=== PATIENT | female | born 1955 | race Hispanic/Latino ===

== ENCOUNTER 2016-09-11 04:50 | Emergency (ER) | payer SELFPAY ==
[2016-09-11 05:54] VITALS: O2SAT 99
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
[2016-09-11 07:13] VITALS: BP 132/75; PULSE 75; RESP 18; TEMP 98.2
== END 2016-09-11 07:13 | disposition home or self-care (01) ==
LOC: C.ER 04:50
DX: Z76.0 Encounter for issue of repeat prescription (principal); E11.9 Type 2 diabetes mellitus without complications; Z79.84 Long term (current) use of oral hypoglycemic drugs

== ENCOUNTER 2017-02-16 15:52 | Emergency (ER) | payer MEDICARE ==
[2017-02-16 16:02] VITALS: TEMP 98.5
[2017-02-16] MEDS ORDERED: Sodium Chloride 0.9% 500 ML IV ONE ×2 (16:30→16:44)
[2017-02-16 17:17] LABS: ALB/GLOB RATIO 1.2 (1.0-2.1); ALKALINE PHOSPHATASE 89 U/L (38-126); ALT/SGPT 28 U/L (9-52); AST/SGOT 21 U/L (14-36); BILIRUBIN,TOTAL 0.3 mg/dL (0.2-1.3); BLOOD UREA NITROGEN 14 mg/dL (7-17); CALCIUM 8.9 mg/dl (8.6-10.4); CARBON DIOXIDE 26 mmol/L (22-30); CHLORIDE 99 mmol/L (98-107); GFR AFRICAN-AMERICAN > 60; GLUCOSE,RANDOM 181 mg/dL (65-105); POTASSIUM 3.6 mmol/L (3.6-5.2); SODIUM 134 mmol/L (132-148); TOTAL PROTEIN 7.7 g/dL (6.3-8.3)
[2017-02-16 17:19] LABS: BASO # 0.1 K/uL (0.0-0.2); BASO % 2.8 % (0.0-2.0); EOS # 0.2 K/uL (0.0-0.7); EOS % 5.6 % (0.0-4.0); HEMATOCRIT 36.2 % (34.0-47.0); LYMPH # 1.8 K/uL (1.0-4.3); MEAN CELL VOLUME 93.6 fL (81.0-99.0); MEAN CORPUSCULAR HGB CONC 35.2 g/dL (33.0-37.0); MONO # 0.9 K/uL (0.0-0.8); NRBC % 0.1 % (0.0-2.0); PLATELET COUNT 319 K/uL (130-400); RED CELL DISTRIBUTION WIDTH 13.8 % (11.5-14.5); WHITE BLOOD COUNT 4.4 K/uL (4.8-10.8)
--- NOTE | 2017-02-16 17:20 | C.PDOC ---
History Of Present Illness 62 year old female, whose PMHx includes breast cancer and is currently in chemotherapy, presents to the ED for evaluation of cough which began 3 weeks ago. Patient states her cough is productive of green sputum and reports associated back pain. Patient states she was evaluated by her PMD and given prescription for Zithromax. Patient finished her course 2 weeks ago without improvement. Patient was then placed on Ampicillin, but states her cough has worsened. Patient denies fever, chills, abdominal pain, hemoptysis, vomiting, diarrhea, and recent travel at this time. Time Seen by Provider: 02/16/17 16:26 Chief Complaint (Nursing): Cough, Cold, Congestion History Per: Patient History/Exam Limitations: no limitations Onset/Duration Of Symptoms: Days (3 weeks ) Current Symptoms Are (Timing): Still Present Reports Recently: Treated By A Physician Recent travel outside of the [place]: No Additional History Per: Patient Past Medical History Reviewed: Historical Data, Nursing Documentation, Vital Signs Vital Signs: Last Vital Signs Temp 98.5 F 02/16/17 16:01 Pulse 101 H 02/16/17 19:24 Resp 16 02/16/17 19:24 BP 161/74 H 02/16/17 19:24 Pulse Ox 95 02/16/17 19:24 - Medical History PMH: Anxiety Other PMH: breast cancer Surgical History: Cholecystectomy Family History: States: Unknown Family Hx - Social History Hx Alcohol Use: No Hx Substance Use: No - Immunization History Hx Tetanus Toxoid Vaccination: No Hx Influenza Vaccination: No Hx Pneumococcal Vaccination: No Review Of Systems Constitutional: Negative for: Fever, Chills Respiratory: Positive for: Cough, Sputum Gastrointestinal: Negative for: Vomiting, Abdominal Pain, Diarrhea Physical Exam - Physical Exam Appears: Non-toxic, No Acute Distress Skin: Normal Color, Warm, Dry, No Rash Head: Atraumatic, Normacephalic Eye(s): bilateral: Normal Inspection, PERRL, EOMI Ear(s): Bilateral: Normal Nose: Normal, No Discharge Oral Mucosa: Moist Throat: Normal, No Erythema, No Exudate Neck: Normal ROM, Supple Chest: Symmetrical, No Deformity, No Tenderness Cardiovascular: Rhythm Regular, No Friction Rub, No Murmur Respiratory: No Rales, Rhonchi (scant ), Wheezing Gastrointestinal/Abdominal: Soft, No Tenderness Back: No Vertebral Tenderness, No Paraspinal Tenderness Extremity: Normal ROM, No Tenderness, Capillary Refill (less than 2 second ), No Swelling Neurological/Psych: Oriented x3, Normal Speech, Normal Cognition, Normal Motor Gait: Steady ED Course And Treatment - Laboratory Results Result Diagrams: 02/16/17 17:02 02/16/17 17:02 O2 Sat by Pulse Oximetry: 96 (on RA ) Pulse Ox Interpretation: Normal - Other Rad CXR X-Ray: Interpreted by Me, Viewed By Me, Read By Radiologist Interpretation: HISTORY: SOB, cough. COMPARISON: 01/03/2011. TECHNIQUE: Chest PA and lateral. FINDINGS: LUNGS: There is a tiny irregular opacity at the left lung base is also projects over coursing vessels and over the posterior left 9th rib. Is not appreciated such on the prior study. A tiny scar for summation shadows of crisscrossing pulmonary vascular markings are 1 consideration. A tiny irregularly marginated nodule the left lung base is not excluded. No consolidation to suggest an infiltrate suggested. PLEURA: No significant pleural effusion identified. No pneumothorax apparent. CARDIOVASCULAR: Probable top-normal heart size. Pulmonary vasculature also top -normal. OSSEOUS STRUCTURES: No significant abnormalities. VISUALIZED UPPER ABDOMEN: Multiple clips in the right upper quadrant these appear more numerous than typically seen with cholecystectomy. Correlate clinically. OTHER FINDINGS : None. IMPRESSION: No consolidative infiltrate. Indeterminate tiny irregularly marginated nodular opacity left lung base- its significance, if any is unknown. Not appreciated on the [address] study[address] chest to to further evaluate Progress Note: CXR was concerning for possible mass. CT chest ordered. The CXR and CT results were discussed with the patient. Patient was instructed to follow up with her oncologist. Medical Decision Making Medical Decision Making: Progress: Bloodwork, UA, EKG, CT Head, and CXR ordered and reviewed. Duoneb INH, Solu-Medrol IVP, and IV Fluids administered. On re-exam, the patient reports improvement of symptoms. Lungs are CTA, heart is RRR, abdomen is soft, non-tender and the patient is tolerating Po well. Ambulatory in the ED with steady gait. Follow up with the medical doctor within 1-2 days. Return if worsened. Disposition - Disposition Referrals: Shaik Castellon MD [Staff Provider] - Disposition: HOME/ ROUTINE Disposition Time: 19:04 Condition: GOOD Additional Instructions: Follow up with the medical doctor within 1-2 days, Return if worsened. Prescriptions: Hydrocodone/Chlorpheniramine [Tussionex] 5 ml PO BID PRN #50 ml PRN Reason: Cough Loratadine [Claritin] 10 mg PO DAILY #10 tab predniSONE [Prednisone] 20 mg PO BID #10 tab Instructions: Acute Bronchitis (ED) Forms: [employer] (Greek) - Clinical Impression Clinical Impression: Bronchitis - PA / PRIMARY HEALTH CARE NURSE / Resident Statement MD/DO has reviewed & agrees with the documentation as recorded. - Scribe Statement The provider has reviewed the documentation as recorded by the Scribe (Flaquita Jeffries) All medical record entries made by the Scribe were at my direction and personally dictated by me. I have reviewed the chart and agree that the record accurately reflects my personal performance of the history, physical exam, medical decision making, and the department course for this patient. I have also personally directed, reviewed, and agree with the discharge instructions and disposition.
[2017-02-16] MEDS ORDERED: MethylPREDNISolone 40 mg Vial IVP STA (17:23)
[2017-02-16] MEDS: Albuterol-Ipratrop 3 mg / 0.5 (3 ml) UD IH SCH ×2 (17:30→17:45)
[2017-02-16] MEDS ORDERED: MethylPREDNISolone 40 mg Vial ONE (17:35)
[2017-02-16] MEDS ORDERED: Albuterol-Ipratrop 3 mg / 0.5 (3 ml) UD ONE (17:38)
[2017-02-16 18:42] LABS: EOSINOPHIL 9 % (0-4); NEUTROPHIL 25 % (50-75); TOTAL CELLS COUNTED 100
--- NOTE | 2017-02-16 18:54 | CT ---
CT chest without IV contrast Indication: ? Mass in the lungs Technique: Contiguous axial images were obtained through the chest without intravenous contrast enhancement. Sagittal and coronal reconstructions were generated and reviewed. This CT exam was performed using 1 or more of the falling dose reduction techniques: Automated exposure control, adjustment of the MAA and/or kV according to patient size, and/or use of iterative reconstruction technique. Radiation dose (DLP): 708.82 MGy-cm. Comparison: Chest x-ray performed earlier the same day Findings: Visualized portions of the inferior thyroid gland demonstrates 10 mm hypodense nodule in the right lower pole. The unenhanced mediastinal and hilar vascular structures appear grossly unremarkable. The heart appears within normal limits of size. Patchy opacity at the left lung base appears to reflect atelectasis, less likely developing infiltrate. No pleural effusion. No pneumothorax. Hiatal hernia/esophageal wall thickening. Limited visualization of the noncontrast upper abdomen demonstrates cholecystectomy clips. 11 mm hypodensity noted at the anterior aspect of the spleen, indeterminate. Degenerative changes of spine. Impression: 10 mm hypodense nodule in the right lower pole. Recommend thyroid ultrasound. Patchy opacity at the left lung base likely atelectasis, less likely developing infiltrate. Indeterminate 11 mm hypodensity, anterior aspect of the spleen. Hiatal hernia and esophageal wall thickening. Additional incidental findings as above.
[2017-02-16 19:25] VITALS: BP 161/74; PULSE 101; RESP 16
[2017-02-17 08:28] VITALS: O2SAT 96
--- NOTE | 2017-02-17 10:13 | CARD ---
APPROVED REPORT EKG Measurement Heart [id number] <Conclusion> Normal sinus rhythm Prolonged QT Abnormal ECG
== END 2017-02-16 19:30 | disposition home or self-care (01) ==
LOC: C.ER 15:52
DX: J40 Bronchitis, not specified as acute or chronic (principal)
CPT/HCPCS: 71020; 71250; 80053; 83880; 85025; 93005; 94640; 96374; 99285; J2920; J7040

== ENCOUNTER 2017-04-05 14:12 | Emergency (ER) | payer MEDICARE ==
[2017-04-05 14:27] VITALS: PULSE 102; RESP 18; TEMP 97.9; O2SAT 97
[2017-04-05] MEDS ORDERED: Morphine 4 MG/ML VIAL ONE (15:01)
--- NOTE | 2017-04-05 15:06 | RAD ---
PROCEDURE: Radiographs of the Chest and Right Ribs. HISTORY: right lower rib injury r/o fx COMPARISON: None available. TECHNIQUE: Frontal radiograph of the chest and multiple oblique radiographs of the right ribs were obtained. FINDINGS: RIGHT RIBS: No fracture or focal lesion visualized. LUNGS: Clear. PLEURA: No pneumothorax or pleural fluid. CARDIOVASCULAR: Normal sized heart. No pulmonary vascular congestion. OTHER FINDINGS: None. IMPRESSION: Unremarkable radiographs of the chest and right ribs. No right rib fracture.
--- NOTE | 2017-04-05 15:20 | C.PDOC ---
History Of Present Illness 62 y/o female, with history of breast cancer stage 2, presents to the ER complaining of right lower rib pain which has been present since yesterday. She reports that the pain began after she was reaching for something and hit her lower chest on a metal chair. Patient reports that the pain worsens with movement and deep breathing. Patient reports that she is receiving chemotherapy for breast cancer stage 2 and her most recent chemotherapy treatment was last week. Patient denies having shortness of breath and other medical problems. Time Seen by Provider: 04/05/17 14:35 Chief Complaint (Nursing): Rib Injury History Per: Patient History/Exam Limitations: no limitations Onset/Duration Of Symptoms: Days Current Symptoms Are (Timing): Still Present Severity: Moderate Past Medical History Reviewed: Historical Data, Nursing Documentation, Vital Signs Vital Signs: Last Vital Signs Temp 97.9 F 04/05/17 14:27 Pulse 102 H 04/05/17 14:27 Resp 18 04/05/17 14:27 BP 145/87 04/05/17 14:27 Pulse Ox 97 04/05/17 15:30 - Medical History PMH: Anxiety, HTN Surgical History: Cholecystectomy Family History: States: No Known Family Hx - Social History Hx Alcohol Use: No Hx Substance Use: No - Immunization History Hx Tetanus Toxoid Vaccination: No Hx Influenza Vaccination: No Hx Pneumococcal Vaccination: No Review Of Systems Except As Marked, All Systems Reviewed And Found Negative. Respiratory: Negative for: Shortness of Breath Musculoskeletal: Positive for: Other (right lower rib pain) Neurological: Negative for: Weakness, Numbness Physical Exam - Physical Exam Appears: Non-toxic, No Acute Distress, Other (comfortable) Skin: Normal Color, Warm Head: Atraumatic, Normacephalic Eye(s): bilateral: Normal Inspection, PERRL Nose: Normal Oral Mucosa: Moist Neck: Normal, Supple Chest: Symmetrical, Tenderness (tenderness to palpation in right lower chest approx rib 12), Ecchymosis (small ecchymosis in right lower chest approx rib 12) , Other (no swelling and ecchymosis of the breasts) Cardiovascular: Rhythm Regular Respiratory: Normal Breath Sounds, No Accessory Muscle Use, No Rales, No Rhonchi , No Wheezing Gastrointestinal/Abdominal: Normal Exam, Soft, No Tenderness Extremity: Normal ROM Neurological/Psych: Oriented x3, Normal Speech, Normal Cognition, Normal Motor, Normal Sensation ED Course And Treatment O2 Sat by Pulse Oximetry: 97 (RA) Pulse Ox Interpretation: Normal - Other Rad No standard instances X-Ray: Viewed By Me, Read By Radiologist Interpretation: PROCEDURE: Radiographs of the Chest and Right Ribs. HISTORY: right lower rib injury r/o fx. COMPARISON: None available. TECHNIQUE: Frontal radiograph of the chest and multiple oblique radiographs of the right ribs were obtained. FINDINGS: RIGHT RIBS: No fracture or focal lesion visualized. LUNGS: Clear. PLEURA: No pneumothorax or pleural fluid. CARDIOVASCULAR: Normal sized heart. No pulmonary vascular congestion. OTHER FINDINGS: None. IMPRESSION: Unremarkable radiographs of the chest and right ribs. No right rib fracture. Progress Note: CXR and Rib Series ordered. Patient given Morphine. Disposition Counseled Patient/Family Regarding: Studies Performed, Diagnosis, Need For Followup - Disposition Referrals: Shaik Castellon MD [Staff Provider] - Disposition: HOME/ ROUTINE Disposition Time: 15:45 Condition: STABLE Additional Instructions: FOLLOW UP WITH YOUR DOCTOR IN 1-2 DAYS USE YOUR PAIN MEDICATION NEEDED RETURN TO ER IF SYMPTOMS WORSEN Instructions: Rib Contusion (ED) Forms: [employer] (Telugu) Print Language: ICELANDIC - POA Present On Arrival: Falls Or Trauma - Clinical Impression Clinical Impression: Contusion of rib on right side - Scribe Statement The provider has reviewed the documentation as recorded by the Meghanibe Princess Salinas Provider Attestation: All medical record entries made by the Scribe were at my direction and personally dictated by me. I have reviewed the chart and agree that the record accurately reflects my personal performance of the history, physical exam, medical decision making, and the department course for this patient. I have also personally directed, reviewed, and agree with the discharge instructions and disposition.
[2017-04-05 16:10] VITALS: BP 137/91
== END 2017-04-05 16:24 | disposition home or self-care (01) ==
LOC: C.ER 14:12
DX: S20.211A Contusion of right front wall of thorax, initial encounter (principal); W22.03XA Walked into furniture, initial encounter; I10 Essential (primary) hypertension
CPT/HCPCS: 71101; 96372; 99284; J2270